=== PATIENT | male | born 1990 | race African-American/Black ===

== ENCOUNTER 2021-01-26 17:48 | Emergency (ER) | payer SELFPAY ==
[2021-01-26 19:06] LABS: Bilirubin Negative (Negative); Blood, Urine Negative (Negative); Clarity Clear (Clear); Glucose, Urine (Dipstick) Normal (Negative); Ketone, Urine Negative (Negative); Leukocyte Negative Leu/uL (Negative); Nitrite Negative (Negative); Protein, Urine (Dipstick) Negative (Neg-Trace); Specific Gravity, Urine 1.005 (1.002-1.036); Urobilinogen Normal mg/dL (Less than 2); pH, Urine 6.5 (5.0-9.0)
[2021-01-29 00:19] LABS: Chlam.trachomatis by PCR,Urine Not Detected (NotDetected)
== END 2021-01-26 20:18 | disposition home or self-care (01) ==
LOC: ERS 17:48
DX: N50.3 Cyst of epididymis (principal); F17.210 Nicotine dependence, cigarettes, uncomplicated
CPT/HCPCS: 76870; 81003; 87491; 87591; 93976

== ENCOUNTER 2021-06-16 14:28 | Emergency (ER) | payer SELFPAY | END 2021-06-16 15:00 | disposition home or self-care (01) | LOC: ERS 14:28 | DX: H00.035 Abscess of left lower eyelid (principal); F17.210 Nicotine dependence, cigarettes, uncomplicated | CPT/HCPCS: 99283 ==